=== PATIENT | male | born 1975 | race Caucasian/White ===

== ENCOUNTER 2017-02-23 22:34 | Emergency (ER) | payer OTHER ==
[~2017-02-23] VITALS: Ht 182.9 cm; Wt 86.0 kg
[~2017-02-23 22:34] MED LIST: SULF1TAB48 PO; VIC GT
[2017-02-24 04:34] VITALS: BP 138/79
== END 2017-02-24 04:36 | disposition home or self-care (01) ==
LOC: ER 22:38
DX: S81.041A Puncture wound with foreign body, right knee, initial encounter (principal); R03.0 Elevated blood-pressure reading, without diagnosis of hypertension; F17.210 Nicotine dependence, cigarettes, uncomplicated; X95.01XA Assault by airgun discharge, initial encounter; Y93.89 Activity, other specified; Y92.89 Other specified places as the place of occurrence of the external cause
CPT/HCPCS: 73564; 99284